=== PATIENT | male | born 1970 | race African-American/Black ===

== ENCOUNTER 2017-10-26 11:09 | Emergency (ER) | payer MEDICAID ==
[~2017-10-26] VITALS: Ht 170.2 cm; Wt 59.0 kg
[2017-10-26 11:52] LABS: Urine Amorphous Crystal FEW /hpf (None Seen); Urine Bacteria FEW /hpf (None Seen); Urine Blood Negative /uL (Negative); Urine Mucus FEW (None Seen); Urine Specific Gravity 1.022 (1.001-1.035); Urine WBC 12 /hpf (0 - 3)
[2017-10-26] MEDS ORDERED: SODIUM CHLORIDE 0.9% 1,000 ML IV ONE (16:56)
[2017-10-26] MEDS ORDERED: NEOMYCIN-BACITRACIN-POLYM UNITDOSE PKG TOP OINT TOP ONE (17:00)
[2017-10-26] MEDS ORDERED: MORPHINE SULFATE 4 MG/ML SYR/VIAL IV ONE (17:00)
[2017-10-26] MEDS ORDERED: PROMETHAZINE HCL 25 MG/ML 1ML IV ONE (17:00)
[2017-10-26] MEDS ORDERED: LIDOCAINE 2% (LOCAL ANESTH.) PF 5ml SDV ID ONE (17:00)
[2017-10-26] MEDS ORDERED: cefTRIAXone 1GM/10ml IVPUSH 10 ML IV ONE (17:45)
[2017-10-26 18:34] VITALS: BP 140/84
== END 2017-10-26 18:42 | disposition home or self-care (01) ==
LOC: ER 11:09
DX: K64.5 Perianal venous thrombosis (principal); K61.1 Rectal abscess; N39.0 Urinary tract infection, site not specified; K21.9 Gastro-esophageal reflux disease without esophagitis; F17.210 Nicotine dependence, cigarettes, uncomplicated; Z88.0 Allergy status to penicillin
CPT/HCPCS: 46083; 81001; 87077; 87186; 87205; 96374; 96375; 99284; J0696; J2001; J2270; J2550; J7030